=== PATIENT | male | born 1950 | race Caucasian/White ===

== ENCOUNTER 2024-02-25 13:46 | Outpatient (AMB) | payer OTHER, SELFPAY ==
[2024-02-25 13:55] VITALS: BP 130/70; PULSE 69; O2SAT 97; BMI 30.5
--- NOTE | 2024-02-25 13:55 | A.OFFVIS_ITS ---
Vital Signs 02/25/24 13:55 Height 5 ft 9 in Weight 206 lb 6 oz BMI 30.5 BP 130/70 Blood Pressure Location Lt brachial Position Sitting Pulse 69 Pulse Source Pulse Oximeter Pulse Oximetry (%) 97 Oxygen Delivery Method Room Air Intake Visit Reasons: arthralgia Intake Note: Patient presents today for follow up on arthralgia today. Allergies No Known Allergies Allergy (Verified 02/25/24 14:02) HPI HPI arthralgia: Details: He has pain in his mid right back for the last few months, which is aggravated with playing guitar. He has been having sinus congestion with pain localized to his eyebrows and sinuses. He is recovering from URI. Denies scalp tenderness or jaw pain. He has noted since he has had URI that his vision has changed. He has called his peer counselor requesting to be placed on a cancellation list with an appointment scheduled for 04/29/2024. Denies weakness in his upper extremities or lower extremities. [facility] Surgical History (Updated 02/25/24 @ 14:07 by Sherie Moscoso CMA) H/O removal of cyst H/O heart bypass surgery Social History (Updated 02/25/24 @ 14:09 by Sherie Moscoso CMA) Alcohol intake: former Patient Tobacco Use Status: Former Tobacco user Use of substances other than those prescribed or required for medical reasons: No Review of Systems Const All systems reviewed & are unremarkable except as noted in HPI and below Physical Exam Vital Signs: Last Vital Signs Pulse 69 02/25/24 13:55 BP 130/70 02/25/24 13:55 Pulse Ox 97 02/25/24 13:55 Oxygen Delivery Method Room Air 02/25/24 13:55 BMI result Body Mass Index 30.5 Const Other: General: Comfortable CVS: RRR Respiratory: clear to auscultation bilaterally. Good respiratory effort Skin: No lesions seen MSK: Localized tenderness to right upper flank region. No spinous process tenderness. No tenderness in peripheral joints. No synovitis present. Good range of motion of upper extremities and lower extremities. Assessment & Plan Assessment & Plan (1) Strain of right latissimus dorsi muscle: Comment: Discussed diagnosis and management. Code(s): S29.012A - Strain of muscle and tendon of back wall of thorax, initial encounter Category: Medical Plan: He will contact his regional account executive to inquire if regional account executive is okay with patient using diclofenac gel 1% applied to affected area every 4-6 hours as needed Apply ice or heat to affected area twice a day PT ordered with myofascial release Return to clinic in 3 months (2) PMR (polymyalgia rheumatica): Comment: In remission Code(s): M35.3 - Polymyalgia rheumatica Category: Medical Plan: Monitor clinically Inflammatory markers ordered Return to clinic in 3 months Orders: Orders PT Evaluation and Treatment Today S29.012A - Strain of muscle and tendon of back wall of thorax, initial encounter C Reactive Protein Today M35.3 - Polymyalgia rheumatica Erythrocyte Sedimentation Rate Today M35.3 - Polymyalgia rheumatica Medications: New diclofenac sodium 1% (Arthritis Pain (diclofenac)) apply to affected area every 4-6 hours PRN 2 grams topical QID 100 grams 5RF Coding Level of Care Code Est Pt Level 4 (01496) Complex EM visit Add On G2211 Diagnoses Strain of right latissimus dorsi muscle S29.012A PMR (polymyalgia rheumatica) M35.3
== END 2024-02-25 15:21 | disposition home or self-care (01) ==
PROVIDERS: PCP Internal Medicine; Visit Provider Internal Medicine Rheumatology
DX: S29.012A Strain of muscle and tendon of back wall of thorax, initial encounter (principal); M35.3 Polymyalgia rheumatica
CPT/HCPCS: 99214

== ENCOUNTER 2024-04-28 13:58 | Outpatient (RCR) | payer MEDICARE, SELFPAY ==
--- NOTE | 2024-03-26 14:40 | MHC.PT.EP ---
[facility] [place] [facility] [place] [facility] [address] Marci Esquivel [address] [phone] F: [phone] F: [phone] F: [phone] F: [phone] Physical Therapy Plan of Care Date of Evaluation: 03/26/24 Date of Surgery: Diagnosis: strain of muscle and tendon of back wall of thorax, strain of RIGHT latissimus dorsi muscle (MD Dx) RIGHT shoulder girdle/ scapulothoracic muscle imbalances causing thoracic pain (PT Dx) RS Assessment: Joe is a pleasant, motivated 73 y.o. 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 Peterson MD, with Dx of strain of muscle and tendon of back wall of thorax, strain of RIGHT latissimus dorsi muscle. PT diagnosis is RIGHT shoulder girdle/ scapulothoracic muscle imbalances causing thoracic pain. Patient presents with muscle imbalances in R shoulder girdle and scapulothoracic area due to prolonged posture holding guitar. Patient impairments include limited thoracic extension, limited thoracic rotation, limited shoulder flexion, pain in scapular area, reduced diphragmatic breathing, tightness in UT, LS, lat dorsi, rhomboids, weakness in middle and lower traps. Patient current functional limitations are pain and difficulty holding and playing guitar and reaching overhead. Patient will benefit from skilled PT to address aforementioned impairments and functional limitations to meet established goals. Frequency and Duration: The patient will be seen 2x/week for 4 weeks Short Term Goals: 2 weeks Patient demonstrates consistency and independence with HEP to self manage symptoms. Flooring Salesperson Goals: 4 weeks Patient presents with increased R shoulder flexion 175 degrees to restore overhead reaching without sxs. Patient presents with increased R middle trap strength 4/5 to be able to hold guitar for a long period of time without fatigue. Treatment Plan: Modalities to reduce pain, spasms and effusion. Manual therapy to restore motion and function. Therapeutic exercise to improve strength and flexibility. Neuromuscular re-education for posture and balance. Therapeutic activities to return to functional activities of daily living. Electronically signed by: Toshia Childers, PT, DPT Please sign and return to therapist. Thank you for your referral.
--- NOTE | 2024-08-03 16:06 | MHC.PT.DC ---
[facility] [place] Office [address] Marci Esquivel [address] [phone] F: [phone] F: [phone] F: [phone] F: [phone] Physical Therapy Discharge Report Diagnosis: strain of muscle and tendon of back wall of thorax, strain of RIGHT latissimus dorsi muscle (MD Dx) RIGHT shoulder girdle/ scapulothoracic muscle imbalances causing thoracic pain (PT Dx) RS Date of Surgery: Date of Evaluation: 03/26/24 Date of Discharge: 08/03/24 Treatments to Date: 6 Cancellations to Date: 1 No Shows to Date: 0 Discharge Status: Improved Function Independent with HEP Discharge Summary: Joe Rider did very well with PT interventions which included manual therapy techniques, postural education, therapeutic exercises and activities and modalities for muscle relaxation and pain control to help balance shoulder girdle and scapular/mid thoracic musculature. He canceled his last scheduled PT appointment and ceased attending, therefore is discharged at this time. Electronically signed by: Toshia Childers, PT, DPT Please sign and return to therapist. Thank you for your referral.
== END 2024-08-03 16:07 | disposition home or self-care (01) ==
LOC: HO.PT 13:58
PROVIDERS: PCP Internal Medicine; Visit Provider Internal Medicine Rheumatology
DX: S29.012D Strain of muscle and tendon of back wall of thorax, subsequent encounter (principal)
CPT/HCPCS: 97110; 97140; 97161; 97530

== ENCOUNTER 2024-06-03 12:44 | Outpatient (AMB) | payer OTHER, SELFPAY ==
[2024-06-03 12:47] VITALS: BP 110/50; PULSE 75; O2SAT 97; BMI 30.3
--- NOTE | 2024-06-03 12:47 | MHC.OFFVIS ---
Vital Signs 06/03/24 12:47 Height 5 ft 9 in Weight 205 lb 0.478 oz BMI 30.3 BP 110/50 L Blood Pressure Location Rt brachial Position Sitting Pulse 75 Pulse Source Pulse Oximeter Pulse Oximetry (%) 97 Oxygen Delivery Method Room Air Intake Visit Reasons: arthralgia Intake Note: Patient presents today for follow up on arthralgia today. Accompanied by: Self / Same As Patient Allergies No Known Allergies Allergy (Verified 06/03/24 12:49) HPI HPI arthralgia: Details: He has been feeling unwell. He was recently diagnosed with strep throat and was treated. Initially PCP thought that patient had sinus infection. He developed sore throat and seeked medical care from urgent care. He has been feeling tired and dizzy. He continues to work part-time. Hard to take a deep breath. Denies new cough or fevers. He has not been hydrating well. Denies PMR GCA symptoms. Physical therapy resolved flank pain but it has come back intermittently. He is not compliant with PT exercises. [facility] Surgical History (Updated 02/25/24 @ 14:07 by Sherie Moscoso CMA) H/O removal of cyst H/O heart bypass surgery Social History (Updated 02/25/24 @ 14:09 by Sherie Moscoso CMA) Alcohol intake: former Patient Tobacco Use Status: Former Tobacco user Review of Systems Const All systems reviewed & are unremarkable except as noted in HPI and below Physical Exam Vital Signs: Last Vital Signs Pulse 75 06/03/24 12:47 BP 110/50 L 06/03/24 12:47 Pulse Ox 97 06/03/24 12:47 Oxygen Delivery Method Room Air 06/03/24 12:47 BMI result Body Mass Index 30.3 Const Other: General: Comfortable CVS: RRR Respiratory: clear to auscultation bilaterally. Good respiratory effort Vascular: +2 right radial pulse, +1 left radial pulse Skin: No lesions seen MSK: No tenderness in peripheral joints. No synovitis present. Good range of motion of upper extremities and lower extremities. Assessment & Plan Assessment & Plan (1) Strain of right latissimus dorsi muscle: Comment: Initially resolved with physical therapy. He has had intermittent reoccurrence but it is more tolerable than initial onset. Code(s): S29.012A - Strain of muscle and tendon of back wall of thorax, initial encounter Category: Medical Plan: I have asked him to resume exercises learned from PT Return to clinic in 1 year or sooner if needed (2) PMR (polymyalgia rheumatica): Comment: In remission. Inflammatory markers were normal February 2024. Code(s): M35.3 - Polymyalgia rheumatica Category: Medical Plan: Monitor clinically I have asked him to follow up with PCP for evaluation due to complaints of fatigue, dizziness and hard to catch her breath post strep throat infection and treatment. I encouraged him to hydrate well. Return to clinic in 1 year or sooner if needed Coding Level of Care Code Est Pt Level 4 (49229) Complex EM visit Add On G2211 Diagnoses Strain of right latissimus dorsi muscle S29.012A PMR (polymyalgia rheumatica) M35.3
--- OUTSIDE RECORDS SUMMARY | 2024-06-03 14:59 | XMS_ITS | Encounter Summary ---
Author Organization [facility] Address [address] [facility] [address] [place] [address] Phone Care Team Providers Care Administrative Director Name Role Phone Taras Motta DO Primary Care Provider [phone] Reason for Visit * Reason Comments Med Refill Encounter Details Date Type Department Care Team (Late st Contact Info) Description 12/03/2023 Refill [facility] [address] [facility] [address] [place] [phone] Darin Massey MD [address] [facility] [facility] [address] [place] [phone] Social History Tobacco Use Types Packs/Day Years Used Date Smoking Tobacco: Former Smokeless Tobacco: Never Comments:30 years ago Alcohol Use Standard Drinks/Week Comments Yes 0 (1 standard drink = 0.6 oz pur e alcohol) Occasoinal Sex and Gender Information Value Date Recorded Sex Assigned at Not on file Legal Sex Male 2:07 PM EDT Gender Identity Not on file Sexual Orientation Not on file documented as of this encounter Plan of Treatment Not on file documented as of this encounter Visit Diagnoses Not on filedocumented in this encounter Care Teams Administrative Director Relationship Specialty Start Date End Date Taras Motta DO [address] [place] [address] PCP - General Internal Medicine 09/22/20 documented as of this encounter
--- OUTSIDE RECORDS SUMMARY | 2024-06-03 14:59 | XMS_ITS | Encounter Summary ---
Author Organization [facility] Address [facility] [address] [place] [address] Phone Care Team Providers Care Storekeeper Helper Name Role Phone Taras Motta DO Primary Care Provider [phone] Reason for Visit * Reason Comments Med Refill Encounter Details Date Type Department Care Team (Late st Contact Info) Description 12/05/2023 Refill [facility] [address] [facility] [address] [place] [phone] Darin Massey MD [address] [facility] [address] [place] [phone] Social History Tobacco Use Types Packs/Day Years [...] on filedocumented in this encounter Care Teams Storekeeper Helper Relationship Specialty Start Date End Date Taras Motta DO [address] [place] [address] PCP - General Internal Medicine 09/22/20 documented as of this encounter
--- OUTSIDE RECORDS SUMMARY | 2024-06-03 14:59 | XMS_ITS | Encounter Summary ---
Author Organization [facility] Address [address] [facility] [address] [place] [address] Phone Care Team Providers Care Sandblasting Supervisor Name Role Phone Taras Motta DO Primary Care Provider [phone] Reason for Visit * Reason Comments Med Refill Encounter Details Date Type Department Care Team (Late st Contact Info) Description 12/19/2023 Refill [facility] [address] [facility] [address] [place] [phone] Darin Massey MD [address] [facility] [address] [place] [phone] Social History Tobacco Use Types Packs/Day Years [...] on filedocumented in this encounter Care Teams Sandblasting Supervisor Relationship Specialty Start Date End Date Taras Motta DO [address] [place] [address] PCP - General Internal Medicine 09/22/20 documented as of this encounter
--- OUTSIDE RECORDS SUMMARY | 2024-06-03 14:59 | XMS_ITS | Clinical Summary ---
Author Organization [facility] Address [address] [place] [address] Phone Care Team Providers Care Packaging Operator Name Role Phone EliecerTaras mauro Primary Care Provider [phone] Allergies No known active allergies Medications Aspirin Low Dose 81 MG EC tablet Take 81 mg by mouth 1 (one) time each day 1 Active tamsulosin (FLOMAX) 0.4 MG 24 hr capsule TAKE 1 CAPSULE BY MOUTH DAILY AT BEDTIME 1 Active Eliquis 2.5 MG tablet Take 2.5 mg by mouth 2 (two) times a day 2 Active venlafaxine 150 MG 24 hr tablet Take 150 mg by mouth 1 (one) time each day with food 3 Active levothyroxine (SYNTHROID, LEVOTHROID) 100 MCG tablet Take 100 mcg by mouth 1 (one) time each day before breakfast 2 Active valsartan (DIOVAN) 160 MG tablet Take 160 mg by mouth 1 (one) time each day 2 Active methocarbamol (ROBAXIN) 500 MG tablet Take 500 mg by mouth every 8 (eight) hours 3 Active Diclofenac Sodium 1 % gel APPLY 2 GRAMS TOPICALLY TO THE AFFECTED AREA 3 TO 4 TIMES PER DAY 3 Active clotrimazole (LOTRIMIN) 1 % cream APPLY A PEA-SIZED AMOUNT TOPICALLY TO THE GROIN RASH AND GLUTEAL FOLDS TWICE DAILY FOR 4 WEEKS 3 Active cephalexin (KEFTAB) 500 MG tablet TAKE 1 TABLET BY MOUTH FOUR TIMES DAILY FOR 7 DAYS 3 Active fluticasone (FLONASE) 50 MCG/ACT nasal spray SHAKE LIQUID AND USE 1 SPRAY IN EACH NOSTRIL TWICE DAILY 3 Active atorvastatin (LIPITOR) 40 MG tablet Take 40 mg by mouth at bed time 3 Active metoprolol succinate XL (TOPROL XL) 50 MG 24 hr tablet Take 1 tablet (50 mg total) by mouth 1 (one) time each day 30 tablet 5 4 Active Active Problems Problem Noted Date Diagnosed Date Hypertension 03/28/2021 Obese class I 03/28/2021 Obstructive sleep apnea of adult 03/28/2021 Pleural effusion 03/28/2021 Immunizations Immunization Administration Dates Next Due Pfizer SARS-COV-2 05/07/2020 Family History Medical History Relation Comments Heart disease Father Thyroid disease Mother Clotting disorder Sister Thyroid disease Sister Relation Status Comments Father Mother Sister Social History Tobacco Use Types Packs/Day Years Used Date Smoking Tobacco: Former Smokeless Tobacco: Never Tobacco Cessation:Counseling Given: No Comments:30 years ago Alcohol Use Standard Drinks/Week Comments Yes 0 (1 standard drink = 0.6 oz pur e alcohol) Occasoinal Sex and Gender Information Value Date Recorded Sex Assigned at Not on file Legal Sex Male 2:07 PM EDT Gender Identity Not on file Sexual Orientation Not on file Last Filed Vital Signs Vital Sign Reading Time Taken Comments Blood Pressure 138/65 09/16/2022 2:56 PM EDT Pulse 70 09/16/2022 2:56 PM EDT Temperature - - Respiratory Rate - - Oxygen Saturation 98% 09/16/2022 2:56 PM EDT Inhaled Oxygen Concentration - - Weight 91.2 kg (201 lb) 09/16/2022 2:56 PM EDT Height 175.3 cm (5' 9 ) 03/28/2021 2:21 PM EST Body Mass Index 29.68 03/28/2021 2:21 PM EST Plan of Treatment Health Maintenance Due Date Last Done Comments Pneumococcal Vaccine: 50+ Ye ars (1 of 2 - PCV) 06/23/1971 Colorectal Cancer Screening: Annual FOBT 2001 Colorectal Cancer Screening: Colonoscopy 2001 Colorectal Cancer Screening: Sigmoidoscopy 2001 Influenza Vaccine (Season Ended) 2024 Hepatitis B Vaccine Aged Out No longe r eligible based on patient's age to complete this topic Insurance Care Teams Packaging Operator Relationship Specialty Start Date End Date Taras Motta DO [address] [place] [address] PCP - General Internal Medicine 09/22/20
== END 2024-06-03 13:15 | disposition home or self-care (01) ==
LOC: HO.RHES 12:45
PROVIDERS: PCP Internal Medicine; Visit Provider Internal Medicine Rheumatology
DX: S29.012A Strain of muscle and tendon of back wall of thorax, initial encounter (principal); M35.3 Polymyalgia rheumatica
CPT/HCPCS: 99214

== ENCOUNTER 2024-12-23 10:54 | Outpatient (AMB) | payer MEDICARE, SELFPAY ==
[2024-12-23 11:00] VITALS: BP 120/60; PULSE 81; O2SAT 99; BMI 29.8
--- NOTE | 2024-12-23 11:00 | MHC.OFFVIS ---
Vital Signs 12/23/24 11:00 Height 5 ft 9 in Weight 201 lb 15.095 oz BMI 29.8 BP 120/60 Blood Pressure Location Rt brachial Position Sitting Pulse 81 Pulse Source Pulse Oximeter Pulse Oximetry (%) 99 Oxygen Delivery Method Room Air Intake Visit Reasons: follow up/ MD sibleyq appt today Intake Note: Patient presents today for gout Accompanied by: Self / Same As Patient Allergies No Known Allergies Allergy (Verified 12/23/24 11:01) HPI HPI follow up/ MD barclay appt today: Details: Three weeks ago aid swelling in his right ankle that is spread to his midfoot. He is noticing increased pain shooting to his big toe today. PCP prescribed colchicine for a couple of days, which resolved the episode then it returned. He then received prednisone 3 tablets to take for 1 day, 2 tablets for 2 days then 1 tablet for 2 days and stop. After taking prednisone it returned. He took Tylenol yesterday without relief. He is avoiding NSAIDs due to his cardiac history. He may have had 4 beers prior to episode. He also recalls having shrimp. History of recurrent episode involving his ankle with swelling more recently every 6 months. He has also has history of podagra. [facility] Surgical History H/O removal of cyst H/O heart bypass surgery Social History Alcohol intake: former Patient Tobacco Use Status: Former Tobacco user Physical Exam Vital Signs: Last Vital Signs Pulse 81 12/23/24 11:00 BP 120/60 12/23/24 11:00 Pulse Ox 99 12/23/24 11:00 Oxygen Delivery Method Room Air 12/23/24 11:00 BMI result Body Mass Index 29.8 Const Other: General: Comfortable CVS: RRR Respiratory: clear to auscultation bilaterally. Good respiratory effort Skin: No lesions seen MSK: Tender to palpate right ankle with synovitis. He also has tenderness of midfoot. Erythema present right dorsal foot and ankle. No other joints are swollen. Normal range of motion of upper extremities and lower extremities. No tophus identified. Assessment & Plan Assessment & Plan (1) Gout: Comment: Presumed. Recurrent episode. Code(s): M10.9 - Gout, unspecified Category: Medical Plan: I will treat current flare with course of prednisone. He will return to lab for uric acid check after gout resolves. He has allopurinol prescribed from PCP at home. He will start allopurinol after uric acid level is checked. Return to clinic in May 2025 or sooner if needed (2) PMR (polymyalgia rheumatica): Comment: In remission. Inflammatory markers were normal February 2024. Code(s): M35.3 - Polymyalgia rheumatica Category: Medical Plan: Monitor clinically Return to clinic in May 2025 or sooner if needed Orders: Orders Uric Acid Today M10.9 - Gout, unspecified Creatinine Today M10.9 - Gout, unspecified Alanine Aminotransferase Today M10.9 - Gout, unspecified Aspartate Amino Transferase Today M10.9 - Gout, unspecified Medications: New prednisone Take 2 tablets daily for 5 days then stop. Take prednisone with food. 40 mg (2 x 20 mg) PO DAILY 10 tabs 0RF Coding Level of Care Code Est Pt Level 3 (80351) Complex EM visit Add On G2211 Diagnoses Gout M10.9 PMR (polymyalgia rheumatica) M35.3
--- OUTSIDE RECORDS SUMMARY | 2024-12-23 13:35 | XMS_ITS | Encounter Summary ---
Author Organization [facility] Address [address] [facility] [address] [place] [address] Phone Care Team Providers Care Hris Specialist Name Role Phone Taras Motta DO Primary Care Provider [phone] Reason for Visit * Reason Comments Med Refill Encounter Details Date Type Department Care Team (Late st Contact Info) Description 12/05/2023 Refill [facility] [address] [facility] [address] [place] [phone] Darin Massey MD [address] [facility] [address] [place] [phone] Social History Tobacco Use Types Packs/Day Years [...] on filedocumented in this encounter Care Teams Hris Specialist Relationship Specialty Start Date End Date Taras Motta DO [address] [place] [address] PCP - General Internal Medicine 09/22/20 documented as of this encounter
--- OUTSIDE RECORDS SUMMARY | 2024-12-23 13:36 | XMS_ITS | Encounter Summary ---
Author Organization [facility] Address [address] [facility] [address] [place] [address] Phone Care Team Providers Care Flask Fitter Name Role Phone Taras Motta DO Primary Care Provider [phone] Reason for Visit * Reason Comments Med Refill Encounter Details Date Type Department Care Team (Late st Contact Info) Description 12/03/2023 Refill [facility] [address] [facility] [facility] [address] [place] [phone] Darin Massey MD [address] [facility] [address] [place] [phone] Social History Tobacco Use Types Packs/Day Years [...] on filedocumented in this encounter Care Teams Flask Fitter Relationship Specialty Start Date End Date Taras Motta DO [address] [place] [address] PCP - General Internal Medicine 09/22/20 documented as of this encounter
--- OUTSIDE RECORDS SUMMARY | 2024-12-23 13:36 | XMS_ITS | Clinical Summary ---
Author Organization [facility] Address [address] [employer] [facility] [address] [place] [address] Phone Care Team Providers Care Orthodontic Laboratory Technician Name Role Phone Taras Motta DO Unavailable [phone] Taras Motta DO Primary Care Provider Adrian Massey MD Unavailable [phone] Allergies Active Allergy Reactions Criticality Noted Date Comments Dike Pollen-Short Ragweed 05/02/2023 Medications amLODIPine (NORVASC) 10 MG tablet Take 10 mg by mouth every morning. 04/25/2023 Active ELIQUIS 2.5 mg Take 2.5 mg by mouth 2 (two) times a day. Active atorvastatin (LIPITOR) 40 MG tablet Take 40 mg by mouth daily. Active levothyroxine (SYNTHROID, LEVOTHROID) 100 MCG tablet Take 100 mcg by mouth. Active metoprolol succinate (TOPROL-XL) 50 MG 24 hr tablet Take 50 mg by mouth. 12/16/2022 Active tamsulosin (FLOMAX) 0.4 mg Cap Take 0.4 mg by mouth nightly at bedtime. 03/23/2023 Active valsartan (DIOVAN) 160 MG tablet Take 160 mg by mouth daily. Active venlafaxine (EFFEXOR-ER,) 150 mg TR24 Take 150 mg by mouth daily. with food Active Active Problems Problem Noted Date Diagnosed Date CKD (chronic kidney disease) 05/02/2023 Congestive heart failure 05/02/2023 Acquired hypothyroidism 05/02/2023 Assessment & Plan (04/30/2024 3:22 PM EDT): Reports good consistency taking rx appropriately. Will check labs & adjust rx as appropriate. Has just started a vitamin w/ B-complex. Advised to check label & if has biotin, hold for ~ 1 week prior to having labs done. To call/message via portal if hasn't heard from me with results within 1-2 weeks. If levels normal, will repeat labs yearly, sooner prn symptoms of thyroid dysfunction or > 10-15# weight change, or as otherwise clinically indicated. Will again call for records from [facility]. Assessment & Plan (05/02/2023 12:58 PM EDT): Reports good consistency taking rx appropriately. Will check labs & adjust rx as appropriate. To call/message via portal if hasn't heard from me with results within 1-2 weeks. If levels normal, will repeat labs yearly, sooner prn symptoms of thyroid dysfunction or > 10-15# weight change, or as otherwise clinically indicated. Will call for records from [facility]. Hypertension 03/28/2021 Obstructive sleep apnea of adult 03/28/2021 CAD (coronary artery disease) Social History Tobacco Use Types Packs/Day Years Used Date Smoking Tobacco: Former Cigarettes 2 5 1 989 - 1993 Smokeless Tobacco: Never Tobacco Cessation:Counseling Given: Not Answered Alcohol Use Standard Drinks/Week Comments Not Currently 0 (1 standard drink = 0.6 oz pur e alcohol) Education Answer Date Recorded Are you interested in more education? Not on bharti e 10/28/2022 Are you concerned about learning? Not on file 10/28/2022 No 10/28/2022 No 10/28/2022 Digital Access Answer Date Recorded No 10/28/2022 No 10/28/2022 Reliable internet access at home? Not on file 10/28/2022 Device with a working camera? Not on file Sex and Gender Information Value Date Recorded Sex Assigned at Not on file Legal Sex Male 9:50 AM EDT Gender Identity Not on file Sexual Orientation Not on file Last Filed Vital Signs Vital Sign Reading Time Taken Comments Blood Pressure 122/62 04/30/2024 11:54 AM EDT Pulse 76 04/30/2024 11:54 AM EDT Temperature - - Respiratory Rate - - Oxygen Saturation 98% 04/30/2024 11:54 AM EDT Inhaled Oxygen Concentration - - Weight 94.2 kg (207 lb 9.6 oz) 04/30/2024 11:54 AM EDT Height 174 cm (5' 8.5 ) 04/30/2024 11:54 AM EDT Body Mass Index 31.1 04/30/2024 11:54 AM EDT Plan of Treatment Upcoming Encounters Date Type Department Care Team (Late st Contact Info) Description 05/04/2025 12:00 PM EDT Office Visit [facility] [address] [place] [address] Tiffanie Aguilar MD [address] [place] [address] [email or web address] Health Maintenance Due Date Last Done Comments Adult Td,Tdap Booster 1952 DEPRESSION SCREENING 1964 HEPATITIS C SCREENING 1970 PNEUMOCOCCAL VACCINES (50+ years) (1 of 2 - PCV) 06/23/1971 COLOGUARD 1997 COLONOSCOPY 1997 COLORECTAL CANCER SCREENING 1997 FIT TEST 1997 FOBT 1997 SIGMOIDOSCOPY 1997 VIRTUAL COLONOSCOPY 1997 RSV VACCINE (1 - Risk 50-74 years 1-dose series) 2002 ZOSTER VACCINES (1 of 2) 2002 ABDOMINAL AORTIC ANEURYSM (AAA) SCREENING 2017 CREATININE LEVEL 05/01/2024 05/02/2023 POTASSIUM LEVEL 05/01/2024 05/02/2023 INFLUENZA VACCINE (#1) 2024 COVID-19 VACCINE ( - season) 2024 BLOOD PRESSURE 10/31/2024 04/30/2024 TSH LEVEL 05/08/2025 05/08/2024, 10/12, 05/02/2023, Additional history exists SMOKING STATUS SCREENING (Once After 26 Yrs) Completed 04/30/2024 HEPATITIS A VACCINES Aged Out No long er eligible based on patient's age to complete this topic HIB VACCINES Aged Out No longer eligi ble based on patient's age to complete this topic IPV VACCINES Aged Out No longer eligi ble based on patient's age to complete this topic MENINGOCOCCAL VACCINES (ACWY) Aged Out No longer eligible based on patient's age to complete this topic MENINGOCOCCAL VACCINES (B) Aged Out N o longer eligible based on patient's age to complete this topic Medical Devices Not on file Procedures Procedure Name Priority Date/Time Associated Diagnosis Comments TSH WITH REFLEX Routine 05/08/2024 12:18 PM EDT Acquired hypothyroidism BASIC METABOLIC PANEL (BMP) Routine 05/02/2023 10:11 AM EDT Acquired hypothyroidism from Last 3 Months or Most Recently Relevant to Health Maintenance Results * TSH with reflex (05/08/2024 12:18 PM EDT) Blood us Tiffanie Aguilar MD LAB BLOOD BKR ORDERABL ES Final Result [address] [address] * (ABNORMAL) Basic metabolic panel (05/02/2023 10:11 AM EDT) SODIUM 140 133 - 146 mmol/L CHLORIDE 104 96 - 108 mmol/L POTASSIUM 4.5 3.3 - 5.1 mmol/L CO2 26 21 - 35 mmol/L BUN 23(H) 6 - 19 mg/dL CREATININE 1.30 0.5 - 1.5 mg/dL GLUCOSE 160(H) 70 - 99 mg/dL CALCIUM 9.5 8.4 - 10.3 mg/dL EGFR 59(L) >59 mL/min/1.7 3m2 Comment:Estimated glomerular filtration rate calculated using the CKD-EPI refit equation. ANION GAP 15 10 - 20 mmol/L Blood 05/02/2023 10:1 1 AM EDT 05/02/2023 10:12 AM EDT Tiffanie Aguilar MD LAB BLOOD BKR ORDERABL ES Final Result [address] [address] from Last 3 Months or Most Recently Relevant to Health Maintenance Insurance [employer] RE[employer] RE[employer]PLACEMENT [employer]IC[employer] HMO REPLACEMENT [address] [address] MEDICARE HMO REPLACEMENT [employer] RE[employer]AC[employer] Care Teams Orthodontic Laboratory Technician Relationship Specialty Start Date End Date Taras Motta DO [address] [address] PCP - General Internal Medicine 05/02/23 Taras Motta DO [address] [address] Internal Medicine 10/25/22 Adrian Massey MD [address] [place] [address] [email or web address] Nephrology 05/05/23 Additional Source Comments The information contained in this document represents components of the legal health record. It is not the complete legal health record.[facility]
--- OUTSIDE RECORDS SUMMARY | 2024-12-23 13:36 | XMS_ITS | Continuity of Care Document ---
Author Organization [place] [facility], [facility] Address [address] [place] [address] Care Team Providers Care Clothing Patternmaker Name Role Phone MARLON DE GUZMAN Primary Care Provider Assessment Encounter Date Assessment Date Assessment LastModified by Organization Details LastModified Time 11/05/2024 11/05/2024 Joe Grant is a 74-year-old male with recurrent sinus infections, bilateral nasal polyps, and a deviated septum contributing to sinus blockage. The patient has not yet started using the prescribed nasal spray, Xhance, which is intended to shrink the nasal polyps and reduce inflammation. I will resend the prescription to the specialty pharmacy and ensure the patient is able to obtain the medication. The goal is to reduce the frequency of sinus infections and avoid surgical intervention, given the patient's use of Eliquis for blood clots, which poses a risk if surgery is required. FOLLOW-UP: The patient will follow up in a few months to assess the effectiveness of the nasal spray. If symptoms persist, a CAT scan of the sinuses will be considered to evaluate the need for surgical intervention. [email or web address] Not available 11/05/2024 15:45:29 Plan of Treatment Reminders Order Date Submit Date Provider Last Modified By Organization Details Last Modified Time Details Appointments Establish ed 30 2024 12:00P M RITO ANN MD Not available Not available Not available Lab None recorded. Referral None recorded. Procedures None recorded. Surgeries None recorded. Imaging None recorded. Medication Orders Xhance 93 mcg/actua tion breath activated aerosol 2024 025 [employer] (New Address), [address] [place] [address], [address], [place], [place], [id number], 11/05/2024 15:33:15 Patient TargetsNo targets recorded. Patient Instructions Encounter Date Encounter Id Patient Instructions Last Modified By Organization Details Last Modified Time 11/05/2024 [id number] - sound effects supervisor the prescribed nasal spray, Xhance, from the specialty pharmacy. - Use the nasal spray as directed to reduce nasal polyps and inflammation. - Follow up in a few months to assess progress. - Notify the provider if there are issues obtaining the medication. [email or web address] Not available 11/05/2024 15:33:30 Please note: Parts of this encounter note have been generated by AI based on audio conversation. Patient consent was required prior to utilizing this technology. Content review was required prior to finalizing the note. [email or web address] Not available 11/05/2024 15:33:30 Reason for Referral None Reported. Problems Name Problem SNOMED Code Status Onset Date Resolution Date Notes Provider Name and Address Organization Details Recorded Time Chronic rhinitis 45272685 Active 2014 Rhinitis, chronic; Note: Date Diagnosed : 03/07/2014 3:30 PM (472.0) Not Available [facility] 4 03:02:30 Acute maxillary sinusitis 43793635 Active 2015 Acute maxillary sinusitis , unspecifi ed; Note: Date Diagnosed : 05/24/2015 3:00 PM (J01.00) Not Available [facility] 4 03:02:33 Posterior rhinorrhe a 32960289 Active 2017 Postnasal drip; Note: Date Diagnosed : 10/08/2017 2:21 PM (R09.82) Not Available [facility] 4 03:02:32 Acute frontal sinusitis 01285141 Active 2018 Acute frontal sinusitis , unspecifi ed; Note: Date Diagnosed : 05/12/2018 5:03 PM (J01.10) Not Available [facility] 4 03:02:32 Seasonal allergic rhinitis 844903209 Active 2018 Other seasonal allergic rhinitis; Note: Date Diagnosed : 05/26/2018 4:19 PM (J30.2) Not Available [facility] 4 03:02:31 Deviated nasal septum 657031915 Active 2024 RITO CASTILLO MD [address] [facility], [place], [address] , [facility] - [facility] 5 14:10:40 Allergic rhinitis 03509702 Active 2024 RITO CASTILLO MD [address] [facility] [place], [place], [address] , [facility] - [facility] [place] 5 14:10:52 Bilateral tinnitus 30123123061 02 Active 2024 RITO CASTILLO MD [address] [facility] [place] [address], [place], [address] , [facility] - [facility] [place] 5 14:11:04 Polyp of nasal cavity and/or nasal sinus 452048006 Active 2024 RITO CASTILLO MD [address] [facility] [place] [address], [place], [address] , [facility] - [facility] [place] 5 14:11:11 Chronic sinusitis 69208714 Active 2024 RITO CASTILLO MD [address] [facility] [place] [address], [place], [address] , [facility] - [facility] 15:29:56 Sensorine ural hearing loss of bilateral ears 183832963 Active 2024 RICHARD JONES [address] [facility] [place], [place], [address] , [facility] - [facility] 5 15:30:39 Notes:Some problems listed i n Document: #[id number] could not be added to this patient's chart. Please review this document and add these problems to the patient's chart manually as needed. Problem Notes None recorded. Procedures Surgical History Date Name Laterality Status Provider Name and Address Organization Details Recorded Time JMSNasal/Sinus Endoscopy completed RITO WONG MD 100 [facility], [place], [address], [place] [facility] 11/05/2024 15:29:47 5 Comp Audio with Tymps - 51165 & 11547 completed RICHARD JONES 100 [facility] [address], [place], [address], [place] [facility] 07/30/2024 15:30:34 5 JMSNasal/Sinus Endoscopy completed RITO WONG MD 100 [facility] [address], [place], [address], [place] [facility] 07/09/2024 14:10:34 Imaging Results None recorded. Procedure Notes None recorded. Medical Equipment None Reported. Allergies No known drug allergies Medications Name Sig Start Date Stop Date Status Note LastModified by Organization Details LastModified Time losartan 50 mg tablet 07/09 completed Medicati on ID: [id number] Du ration Value: 30 Brand Name: losartan Send Method: E-Prescr ibed Sub s Allowed: subs OK Speci al Instruct ion: TK 1 T PO ONCE D Medica tionGene ricName: losartan Not Available Not Available Not Available atorvasta tin 40 mg tablet TAKE 1 TABLET BY MOUTH DAILY active Not Available Not Available No t Available atorvasta tin 80 mg tablet TAKE 1 TABLET BY MOUTH DAILY 07/09 completed Not Available Not Available Not Available nystatin 100,000 unit/mL oral suspensio n 05/16 completed Medicati on ID: [id number] Du ration Value: 30 Reason: () Brand Name: nystatin Send Method: E-Prescr ibed Sub s Allowed: subs OK Speci al Instruct ion: SWISH AND SPIT 1 TEA 5ML PO QID Medi cationGe nericNam e: nystatin Not Available Not Available Not Available atorvasta tin 20 mg tablet 07/09 completed Medicati on ID: [id number] D uration Value: 90 Brand Name: atorvast atin Sen d Method: E-Prescr ibed Sub s Allowed: subs OK Speci al Instruct ion: TK 1 T PO QHS Medi cationGe nericNam e: atorvast atin Not Available Not Available Not Available venlafaxi ne 75 mg tablet 07/09 completed Medicati on ID: [id number] Du ration Value: 30 Brand Name: venlafax ine Send Method: E-Prescr ibed Sub s Allowed: subs OK Speci al Instruct ion: TK 1 T PO D Medica tionGene ricName: venlafax ine Not Available Not Available Not Available azithromy loco 250 mg tablet TK 2 TS PO ON DAY 1, THEN TK 1 T PO D FOR 4 DAYS 07/09 completed Not Available Not Available Not Available metoprolo l succinate ER 50 mg tablet,ex tended release 24 hr TAKE 1 TABLET BY MOUTH DAILY active Not Available Not Available No t Available isosorbid e mononitra te ER 30 mg tablet,ex tended release 24 hr TAKE 1 TABLET BY MOUTH DAILY IN THE MORNING 07/09 completed Not Available Not Available Not Available venlafaxi ne ER 150 mg capsule,e xtended release 24 hr TAKE 1 CAPSULE BY MOUTH DAILY WITH FOOD active Not Available Not Available No t Available valsartan 80 mg tablet TAKE 1 TABLET BY MOUTH DAILY active Not Available Not Available No t Available amlodipin e 2.5 mg tablet 07/09 completed Medicati on ID: [id number] D uration Value: 90 Brand Name: amlodipi ne Send Method: E-Prescr ibed Sub s Allowed: subs SHELIA Mcdanieli al Instruct ion: TK 1 T PO QD Medic ationGen ericName : amlodipi ne Not Available Not Available Not Available levothyro xine 100 mcg tablet TAKE 1 TABLET BY MOUTH DAILY IN THE MORNING ON AN EMPTY STOMACH active Not Available Not Available No t Available amoxicill in 875 mg tablet TAKE 1 TABLET BY MOUTH TWICE DAILY FOR 10 DAYS 11/02 completed Not Available Not Available Not Available tamsulosi n 0.4 mg capsule TAKE 1 CAPSULE BY MOUTH EVERY NIGHT AT BEDTIME active Not Available Not Available No t Available amlodipin e 10 mg tablet TAKE 1 TABLET BY MOUTH DAILY active Not Available Not Available No t Available metronida zole 0.75 % topical cream APPLY THIN LAYER TOPICALL Y TO FACE 1 TO 2 TIMES DAILY NEEDED active Not Available Not Available No t Available nitroglyc nisreen 0.4 mg sublingua l tablet PLACE 1 TABLET SUBLINGU ALLY EVERY 5 MINUTES NEEDED FOR CHEST PAIN. CALL 911 active Not Available Not Available No t Available methylpre dnisolone 4 mg tablets in a dose pack 07/09 completed Medicati on ID: [id number] D uration Value: 6 Brand Name: methylpr ednisolo ne Send Method: E-Prescr ibed Sub s Allowed: subs OK Medic ationGen ericName : methylpr ednisolo ne Not Available Not Available Not Available fluticaso ne propionat e 50 mcg/actua tion nasal spray,luci pension 07/09 completed Medicati on ID: [id number] Du ration Value: 30 Brand Name: fluticas one Send Method: E-Prescr ibed Sub s Allowed: subs OK Speci al Instruct ion: SPRAY TWICE IN EACH NOSTRIL QD Medic ationGen ericName : fluticas one Not Available Not Available Not Available levothyro xine 112 mcg tablet 07/09 completed Medicati on ID: [id number] Du ration Value: 90 Brand Name: levothyr oxine Se nd Method: E-Prescr ibed Sub s Allowed: subs OK Speci al Instruct ion: TK 1 T PO ONCE D Medica tionGene ricName: levothyr oxine Not Available Not Available Not Available amoxicill in 875 mg-potass ium clavulana te 125 mg tablet TAKE 1 TABLET BY MOUTH EVERY 12 HOURS FOR 7 DAYS 07/09 completed Not Available Not Available Not Available venlafaxi ne ER 150 mg tablet,ex tended release 24 hr TAKE 1 TABLET BY MOUTH DAILY WITH FOOD 07/09 completed Not Available Not Available Not Available EpiPen 2-Aaron 0.3 mg/0.3 mL injection , auto-inje ctor Inject 1 pen injector intramus cularly single dose as needed 07/09 completed Medicati on ID: [id number] D uration Value: 1 Prescri bed By Name: Anthony Garcia M.D. Bra nd Name: EpiPen 2-Araon Se nd Method: E-Prescr ibed Sub s Allowed: subs OK Medic ationGen ericName : EpiPen 2-Aaron Not Available Not Available Not Available Eliquis 2.5 mg tablet TAKE 1 TABLET BY MOUTH TWICE DAILY active Not Available Not Available No t Available doxycycli ne hyclate 200 mg tablet,de layed release 1 tablet by mouth 07/09 completed Medicati on ID: [id number] D uration Value: 21 Prescri bed By Name: Anthony Garcia M.D. Bra nd Name: doxycycl ine hyclate Send Method: E-Prescr ibed Sub s Allowed: subs OK Medic ationGen ericName : doxycycl ine hyclate Not Available Not Available Not Available Xhance 93 mcg/actua tion breath activated aerosol [place] 1 spray twice a day by intranas al route. 2024 active Not Available Not Available Not Avai lable Vitals None Recorded Social History None recorded. Functional Status None recorded. Mental Status None recorded. Family History Nothing Reported. Medical History Condition Response Heart Problems Y Anxiety Y Sleep Disorder Y Heart Attack ([place]) Y Migraines Y Thyroid Problems Y Hypertension Y Depression Y Kidney Disease Y Past Encounters Encounter ID Performer Location Encounter Start Date Encounter Closed Date Diagnosis/Indication Diagnosis SNOMED-CT Code Diagnosis ICD10 Code Diagnosis IMO Codes Diagnosis Note [id number] RITO CASTILLO MD [facility] [address] [address] 11/05/2024 14:50:45 11/05/2024 16:33:41 Deviated nasal septum 515340497 J34.2 86017 Sensorineu ral hearing loss of bilateral ears 735682746 H90.3 85156771 Audiologic al evaluation results: Right ear: Normal sloping to moderately severe sensorineu ral hearing loss with very good word recognitio n. Left ear: Normal sloping to moderately severe with excellent word recognitio n. Tympanomet ry: Right Ear:Type A Left Ear:Type A Chronic sinusitis 671526 00 J32.8 Polyp of n jovi cavity and/or nasal sinus 077372815 J33.9 14856 Health Concerns Section Related Observation LastModified by Organization Detai ls LastModified Time None Recorded Concern Status LastModified by Organization Details LastModified Time None Recorded Payers Encounter Date Sequence Insurance Name Policy Number Policy Beltrán Covered Member ID Beltrán Member ID Guarantor Name 11/05/2024 1 [facility] [id number] Joe Grant [id number] Joe Grant Notes Date Note Type Note Provider Name and Address Organization Details Recorded Time 11/05/2024 text/html Joe Grant is a 74-year-old male who presents for evaluation of recurrent sinus infections and nasal polyps. The patient reports experiencing a severe sinus infection approximately one month ago, which caused facial pain and discomfort. He also noted issues with his eyes, although an evaluation indicated no abnormalities. The patient visited a clinic and was prescribed antibiotics, which resolved the infection temporarily. However, he states that similar infections tend to recur approximately every month. He has not yet started using the prescribed nasal spray, Xhance, intended to shrink the nasal polyps and reduce inflammation, as he did not pick it up from the pharmacy. The patient is currently on Eliquis for blood clots. He also has a deviated septum contributing to sinus blockage. Additionally, the patient has noted some hearing loss, which was confirmed during a prior hearing test. His pharmacy on [facility] has closed, leading to confusion about medication delivery. RITO WONG MD [address] [place] [address], [phone], [facility] - [facility] 11/05/2024 15:46:19
--- OUTSIDE RECORDS SUMMARY | 2024-12-23 13:36 | XMS_ITS | Clinical Summary ---
Author Organization [facility] Address [address] [place] [address] Phone Care Team Providers Care Pulmonologist/Intensivist Name Role Phone EliecerTaras mauro Primary Care Provider [phone] Allergies No known active allergies Medications Aspirin [...] Colorectal Cancer Screening: Sigmoidoscopy 2001 Influenza Vaccine (#1) 2024 Hepatitis B Vaccine Aged Out No longe r eligible based on patient's age to complete this topic Insurance Care Teams Pulmonologist/Intensivist Relationship Specialty Start Date End Date Taras Motta DO [address] [place] [address] PCP - General Internal Medicine 09/22/20
--- OUTSIDE RECORDS SUMMARY | 2024-12-23 13:36 | XMS_ITS | Encounter Summary ---
Author Organization [facility] Address [address] [facility] [address] [place] [address] Phone Care Team Providers Care Procurement Cost Coordinator Name Role Phone Taras Motta DO Primary Care Provider [phone] Reason for Visit * Reason Comments Med Refill Encounter Details Date Type Department Care Team (Late st Contact Info) Description 12/19/2023 Refill [facility] 200 [place] [phone] Darin Massey MD [address] [facility] [address] [place] [phone] Social History Tobacco Use Types Packs/Day Years [...] on filedocumented in this encounter Care Teams Procurement Cost Coordinator Relationship Specialty Start Date End Date Taras Motta DO [address] [place] [address] PCP - General Internal Medicine 09/22/20 documented as of this encounter
--- OUTSIDE RECORDS SUMMARY | 2024-12-23 13:36 | XMS_ITS | Data Portability ---
Author Organization [place] - [facility], Allergy Address [address] [facility] 100 [place] [address] Care Team Providers Care Electrical And Radio Mechanic Name Role Phone MARLON DE GUZMAN Primary [...] mcg/actua tion breath activated aerosol 2024 025 [facility] (New Address), [address] [place] [address] [address], [place], [id number], 11/05/2024 15:33:15 Xhance 93 mcg/actua tion breath activated aerosol 2024 025 [facility] (New Address), [address] [place] [address], [address], [place], [id number], 07/09/2024 14:14:15 Patient TargetsNo targets recorded. 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 He has had difficulty tolerating saline, saline irrigations and numerous nasal steroids. CT scan in February showed mucosal thickening of the sinuses. Today I was able to see a significant septal deviation to the left side with small middle meatal polyps. Given his difficulty tolerating the above medications I have recommended enhanced delivery fluticasone 1 puff each nostril twice daily. We will also arrange for a hearing test given his difficulty with bilateral tinnitus and hearing loss [email or web address] Not available 07/09/2024 14:12:26 11/05/2024 [id number] - logistics support the prescribed nasal spray, Xhance, from the specialty pharmacy. - Use the nasal spray as directed to reduce nasal polyps and inflammation. - Follow up in a few months to assess progress. - Notify the provider if there are issues obtaining the medication. [email or web address] Not available 11/05/2024 15:33:30 Please note: Parts of this encounter note have been generated by AI based on audio conversation. Patient consent was required prior to utilizing this technology. Content review was required prior to finalizing the note. [email or web address] Not available 11/05/2024 15:33:30 Reason for Referral None Reported. Results Created Date Observation Date Name Description Value Unit Range Abnormal Flag Note LastModifiedBy Organization Detail LastModifiedTime 07/14/19 25 06/04/2022 CT, head + brain , w/o contr ast No observ ation record ed. [email or web address] Not Available 04/2024 15:24:07 07/14/19 25 02/19/2024 CT, sinus es, w/o contr ast No observ ation record ed. [email or web address] Not Available 04/2024 15:26:40 07/31/19 25 audio gram No observ ation record ed. BARCODE Not Available 2024 16:17:50 Result Notes None recorded. Problems Name Problem SNOMED Code Status Onset Date Resolution Date Notes Provider Name and Address Organization Details Recorded Time Chronic rhinitis 85103922 Active 2014 Rhinitis, chronic; Note: Date Diagnosed : 03/07/2014 3:30 PM (472.0) Not Available [facility] 4 03:02:30 Acute maxillary sinusitis 26913206 Active 2015 Acute maxillary sinusitis , unspecifi ed; Note: Date Diagnosed : 05/24/2015 3:00 PM (J01.00) Not Available [facility] 4 03:02:33 Posterior rhinorrhe a 98784166 Active 2017 Postnasal drip; Note: Date Diagnosed : 10/08/2017 2:21 PM (R09.82) Not Available [facility] 4 03:02:32 Acute frontal sinusitis 14086397 Active 2018 Acute frontal sinusitis , unspecifi ed; Note: Date Diagnosed : 05/12/2018 5:03 PM (J01.10) Not Available [facility] 4 03:02:32 Seasonal allergic rhinitis 281278403 Active 2018 Other seasonal allergic rhinitis; Note: Date Diagnosed : 05/26/2018 4:19 PM (J30.2) Not Available [facility] 4 03:02:31 Deviated nasal septum 798104916 Active 2024 RITO CASTILLO MD [address] [facility],[place] [address], [place], [address] , [place] - [facility] 5 14:10:40 Allergic rhinitis 22668812 Active 2024 RITO CASTILLO MD [address] [facility],[place] [address], [place], [address] , [place] [facility] [place] 14:10:52 Bilateral tinnitus 81094659610 02 Active 2024 RIT[facility]STILLO MD [facility] [place] [address], [place], [address] , [place] [facility] [place] 14:11:04 Polyp of nasal cavity and/or nasal sinus 007243961 Active 2024 RITO CASTILLO MD [address] [facility],[place] [address], [place], [place], [address] , [place] [facility] [place] 14:11:11 Chronic sinusitis 25251668 Active 2024 RITO CASTILLO MD [address] [facility],[place] [address], [place], [address] , [place] [facility] [place] 15:29:56 Sensorine ural hearing loss of bilateral ears 960260266 Active 2024 RICHARD JONES [address] [facility],[place] [address], [facility] [place], [address] , [place] [facility] 15:30:39 Notes:Some problems listed i n Document: #[id number] could not be added to this patient's chart. Please review this document and add these problems to the patient's chart manually as needed. Problem Notes None recorded. Procedures Surgical History Date Name Laterality Status Provider Name and Address Organization Details Recorded Time JMSNasal/Sinus Endoscopy completed RITO WONG MD [address] [facility],[place] [address], [place], [address], [place] - [facility] [place] 11/05/2024 15:29:47 Comp Audio with Tymps - 80687 & 42203 completed RICHARD JONES [address] [facility] [place] [address], [place], [address], [place] - [facility] [place] 07/30/2024 15:30:34 JMSNasal/Sinus Endoscopy completed RITO WONG MD [address] [place] [address], [phone], [facility] - [facility] 07/09/2024 14:10:34 Imaging Results None recorded. Procedure Notes None recorded. Medical Equipment None Reported. Allergies No known drug allergies Medications Name Sig Start Date Stop Date Status Note LastModified by Organization Details LastModified Time losartan 50 mg tablet 07/09 completed Medicati on ID: [id number] Du ration Value: 30 Brand Name: losartan [...] suspensio n 05/16 completed Medicati on ID: [id number] Du ration Value: 30 Reason: () Brand Name: nystatin Send Method: E-Prescr ibed Sub s Allowed: subs OK Speci al Instruct ion: SWISH AND SPIT 1 TEA 5ML PO QID Medi cationGe nericNam e: nystatin Not Available Not Available Not Available atorvasta tin 20 mg tablet 07/09 completed Medicati on ID: [id number] D uration Value: 90 Brand Name: atorvast atin Sen d Method: E-Prescr ibed Sub s Allowed: subs OK Speci al Instruct ion: TK 1 T PO QHS Medi cationGe nericNam e: atorvast atin Not Available Not Available Not Available venlafaxi ne 75 mg tablet 07/09 completed Medicati on ID: 71819 Du ration Value: 30 Brand Name: venlafax [...] mg tablet 07/09 completed Medicati on ID: [id number] D uration Value: 90 Brand Name: amlodipi [...] dose pack 07/09 completed Medicati on ID: [id number] D uration Value: 6 Brand Name: methylpr ednisolo ne Send Method: E-Prescr ibed Sub s Allowed: subs OK Medic ationGen ericName : methylpr ednisolo ne Not Available Not Available Not Available fluticaso ne propionat e 50 mcg/actua tion nasal spray,luci pension 07/09 completed Medicati on ID: 18177 Du ration Value: 30 Brand Name: fluticas one Send Method: E-Prescr ibed Sub s Allowed: subs OK Speci al Instruct ion: SPRAY TWICE IN EACH NOSTRIL QD Medic ationGen ericName : fluticas one Not Available Not Available Not Available levothyro xine 112 mcg tablet 07/09 completed Medicati on ID: 29072 Du ration Value: 90 Brand Name: levothyr [...] as needed 07/09 completed Medicati on ID: [id number] D uration Value: 1 Prescri bed By Name: Nasrin Higgins nd Name: EpiPen 2-Aaron Se nd Method: E-Prescr ibed Sub s Allowed: subs OK Medic ationGen ericName : EpiPen 2-Aaron Not Available Not Available Not Available Eliquis 2.5 mg tablet TAKE 1 TABLET BY MOUTH TWICE DAILY active Not Available Not Available No t Available doxycycli ne hyclate 200 mg tablet,de layed release 1 tablet by mouth 07/09 completed Medicati on ID: [id number] D uration Value: 21 Prescri bed By Name: Nasrin Higgins nd Name: doxycycl ine hyclate Send Method: E-Prescr ibed Sub s Allowed: subs OK Medic ationGen ericName : doxycycl ine hyclate Not Available Not Available Not Available Xhance 93 mcg/actua tion breath activated aerosol [place] 1 spray twice a day by intranas al route. 2024 active Not Available Not Available Not Avai lable Vitals None Recorded Social History None recorded. Functional Status None recorded. Mental Status None recorded. Family History Nothing Reported. Medical History Condition Response Heart Problems Y Anxiety Y Sleep Disorder Y Heart Attack ([place]) Y Migraines Y Thyroid Problems Y Hypertension Y Depression Y Kidney Disease Y Past Encounters Encounter ID Performer Location Encounter Start Date Encounter Closed Date Diagnosis/Indication Diagnosis SNOMED-CT Code Diagnosis ICD10 Code Diagnosis IMO Codes Diagnosis Note [id number] RITO CASTILLO MD [facility] [address] [address] 07/09/2024 13:18:43 07/09/2024 14:14:13 Deviated nasal septum 113905622 J34.2 01352 Allergic rhinitis 743931 04 J30.9 3871714 Bilateral tinnitus 34101 51409 102 H93.13 621589 Polyp of n jovi cavity and/or nasal sinus 137799140 J33.9 25628 Chronic sinusitis 960422 00 J32.8 [id number] RITO CASTILLO MD [facility] [address] [address] 07/30/2024 14:37:48 07/30/2024 15:35:07 Sensorineural hearing loss of bilateral ears 743905429 H90.3 [id number] Audiologic al evaluation results: Right ear: Normal sloping to moderately severe sensorineu ral hearing loss with very good word recognitio n. Left ear: Normal sloping to moderately severe with excellent word recognitio n. Tympanomet ry: Right Ear:Type A Left Ear:Type A [id number] RITO CASTILLO MD [facility] [address] [address] 11/05/2024 14:50:45 11/05/2024 16:33:41 Deviated nasal septum 164034869 J34.2 25780 Sensorineu ral hearing loss of bilateral ears 017416173 H90.3 [id number] Audiologic al evaluation results: Right ear: Normal sloping to moderately severe sensorineu ral hearing loss with very good word recognitio n. Left ear: Normal sloping to moderately severe with excellent word recognitio n. Tympanomet ry: Right Ear:Type A Left Ear:Type A Chronic sinusitis 497568 00 J32.8 Polyp of n jovi cavity and/or nasal sinus 682143570 J33.9 32942 Health Concerns Section Related Observation LastModified by Organization Detai ls LastModified Time None Recorded Concern Status LastModified by Organization Details LastModified Time None Recorded Advance Directives Directive None Recorded Payers Insurance Date Sequence Insurance Name Policy Number Policy Beltrán Covered Member ID Beltrán Member ID Guarantor Name 11/02/2024 1 [facility] [id number] 04 Joe Grant [id number] Joe Grant Notes Date Note Type Note Provider Name and Address Organization Details Recorded Time 07/09/2024 text/html Sinus congestion, facial pressure and dry throat. Sx persist despite using nasal steroids and a brief trial of Navage. [place] too much pressure and dizziness. [facility] thickening. He was previously noted to have significant allergy. He does have a history of heart disease and is on metoprolol which would make injection immunotherapy contraindicated. He has had tried multiple nasal steroids saline and saline irrigations without improvement. He has also tried some antihistamines but those made him too dry. RITO WONG MD [address] [place] [address], [phone], [facility] - [facility] 07/09/2024 14:13:26 11/05/2024 text/html Joe Grant is a 74-year-old [...] a prior hearing test. His pharmacy on [facility] has closed, leading to confusion about medication delivery. RITO WONG MD [address] [place] [address], [phone], [facility] - [facility] 11/05/2024 15:46:19
== END 2024-12-23 11:25 | disposition home or self-care (01) ==
LOC: HO.RHES 10:54
PROVIDERS: PCP Internal Medicine; Visit Provider Internal Medicine Rheumatology
DX: M10.9 Gout, unspecified (principal); M35.3 Polymyalgia rheumatica
CPT/HCPCS: 99213; G2211

== ENCOUNTER → 2024-12-23 10:54 | Outpatient (BNVA) | payer MEDICARE, SELFPAY | PROVIDERS: PCP Internal Medicine; Visit Provider Internal Medicine Rheumatology | DX: M10.9 Gout, unspecified (principal); M35.3 Polymyalgia rheumatica | CPT/HCPCS: 99212 ==

== ENCOUNTER 2024-12-29 09:50 | Outpatient (REF) | payer MEDICARE, SELFPAY ==
[2024-12-29 14:59] LABS: Alanine Aminotransferase 87 U/L (0-40); Aspartate Amino Transferase 43 U/L (5-37); Estimated Glomerular Filt Rate 49; Uric Acid 7.9 mg/dL (3.4-7.0)
--- OUTSIDE RECORDS SUMMARY | 2024-12-29 18:20 | XMS_ITS | Data Portability ---
Author Organization [place] - [facility], Allergy Address [address] [facility] 100 [place] [address] Care Team Providers Care Manager Contact Name Role Phone MARLON DE GUZMAN Primary Care Provider [phone] Assessment Encounter Date Assessment Date Assessment LastModified [...] mcg/actua tion breath activated aerosol 2024 025 [facility] (New Address), [address] [place] [address] [address], [place], [id number], 11/05/2024 15:33:15 Xhance 93 mcg/actua tion breath activated aerosol 2024 025 [facility] (New Address), [address] [place] [address], [address], [place], [id number], 07/09/2024 14:14:15 Patient TargetsNo targets recorded. 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 [email or web address] Not available 07/09/2024 14:12:26 11/05/2024 [id number] - wind up operator the prescribed nasal spray, Xhance, from the [...] Address Organization Details Recorded Time Chronic rhinitis 17941356 Active 2014 Rhinitis, chronic; Note: Date Diagnosed : 03/07/2014 3:30 PM (472.0) Not Available [facility] 4 03:02:30 Acute maxillary sinusitis 55418185 Active 2015 Acute maxillary sinusitis , unspecifi ed; Note: Date Diagnosed : 05/24/2015 3:00 PM (J01.00) Not Available [facility] 4 03:02:33 Posterior rhinorrhe a 91399998 Active 2017 Postnasal drip; Note: Date Diagnosed : 10/08/2017 2:21 PM (R09.82) Not Available [facility] 4 03:02:32 Acute frontal sinusitis 15146604 Active 2018 Acute frontal sinusitis , unspecifi ed; Note: Date Diagnosed : 05/12/2018 5:03 PM (J01.10) Not Available [facility] 4 03:02:32 Seasonal allergic rhinitis 863866897 Active 2018 Other seasonal allergic rhinitis; Note: Date Diagnosed : 05/26/2018 4:19 PM (J30.2) Not Available [facility] 4 03:02:31 Deviated nasal septum 814395146 Active 2024 RITO CASTILLO MD [address] [facility],[place] [address], [place], [address] , [place] - [facility] 5 14:10:40 Allergic rhinitis 29198015 Active 2024 RITO CASTILLO MD [address] [facility],[place] [address], [place], [address] , [place] - [facility] [place] 14:10:52 Bilateral tinnitus 91832432137 02 Active 2024 RITO CASTILLO MD [facility] [place] [address], [place], [address] , [place] [facility] [place] 14:11:04 Polyp of nasal cavity and/or nasal sinus 676468554 Active 2024 RITO CASTILLO MD [address] [facility],[place] [address], [place], [place], [address] , [place] - [facility] [place] 14:11:11 Chronic sinusitis 74988178 Active 2024 RITO CASTILLO MD [address] [facility],[place] [address], [place], [address] , [place] [facility] [place] 15:29:56 Sensorine ural hearing loss of bilateral ears 719586296 Active [address] [facility],[place] [address], [facility] [place], [address] , [place] [facility] 15:30:39 Notes:Some problems listed i n Document: #[id number] could not be added to this patient's chart. Please review this document and add these problems to the patient's chart manually as needed. Problem Notes None recorded. Procedures Surgical History Date Name Laterality Status Provider Name and Address Organization Details Recorded Time JMSNasal/Sinus Endoscopy completed RITO WONG MD [address] [facility],[place] [address], [place], [address], [place] - [facility] [place] 11/05/2024 15:29:47 Comp Audio with Tymps - 71687 & 97629 completed RICHARD JONES [facility] [place] [address], [place], [address], [place] - [facility] [place] 07/30/2024 15:30:34 JMSNasal/Sinus Endoscopy completed RITO WONG MD [address] [place] [address], [address], [facility] - [facility] 07/09/2024 14:10:34 Imaging Results None recorded. Procedure Notes None recorded. Medical Equipment None Reported. Allergies No known drug allergies Medications Name Sig Start Date Stop Date Status Note LastModified by Organization Details LastModified Time losartan 50 mg tablet 07/09 completed Medicati on ID: [id number] Du ration Value: 30 Brand Name: losartan [...] suspensio n 05/16 completed Medicati on ID: [id number] Du ration Value: 30 Reason: () Brand Name: nystatin Send Method: E-Prescr ibed Sub s Allowed: subs OK Speci al Instruct ion: SWISH AND SPIT 1 TEA 5ML PO QID Medi cationGe nericNam e: nystatin Not Available Not Available Not Available atorvasta tin 20 mg tablet 07/09 completed Medicati on ID: [id number] D uration Value: 90 Brand Name: atorvast atin Sen d Method: E-Prescr ibed Sub s Allowed: subs OK Speci al Instruct ion: TK 1 T PO QHS Medi cationGe nericNam e: atorvast atin Not Available Not Available Not Available venlafaxi ne 75 mg tablet 07/09 completed Medicati on ID: 17902 Du ration Value: 30 Brand Name: venlafax [...] mg tablet 07/09 completed Medicati on ID: [id number] D uration Value: 90 Brand Name: amlodipi [...] dose pack 07/09 completed Medicati on ID: [id number] D uration Value: 6 Brand Name: methylpr ednisolo ne Send Method: E-Prescr ibed Sub s Allowed: subs OK Medic ationGen ericName : methylpr ednisolo ne Not Available Not Available Not Available fluticaso ne propionat e 50 mcg/actua tion nasal spray,luci pension 07/09 completed Medicati on ID: [id number] Du ration Value: 30 Brand Name: fluticas one Send Method: E-Prescr ibed Sub s Allowed: subs OK Speci al Instruct ion: SPRAY TWICE IN EACH NOSTRIL QD Medic ationGen ericName : fluticas one Not Available Not Available Not Available levothyro xine 112 mcg tablet 07/09 completed Medicati on ID: [id number] Du ration Value: 90 Brand Name: levothyr [...] as needed 07/09 completed Medicati on ID: [id number] D uration Value: 1 Prescri bed By [...] by mouth 07/09 completed Medicati on ID: [id number] D uration Value: 21 Prescri bed By Name: Nasrin Higgins nd Name: doxycycl ine hyclate Send Method: E-Prescr ibed Sub s Allowed: subs OK Medic ationGen ericName : doxycycl ine hyclate Not Available Not Available Not Available Xhance 93 mcg/actua tion breath activated aerosol [place] 1 spray twice a day by intranas al route. 2024 active Not Available Not Available Not Avai lable Vitals None Recorded Social History None recorded. Functional Status None recorded. Mental Status None recorded. Family History Nothing Reported. Medical History Condition Response Heart Problems Y Anxiety Y Migraines Y Thyroid Problems Y Depression Y Heart Attack ([place]) Y Sleep Disorder Y Hypertension Y Kidney Disease Y Past Encounters Encounter ID Performer Location Encounter Start Date Encounter Closed Date Diagnosis/Indication Diagnosis SNOMED-CT Code Diagnosis ICD10 Code Diagnosis IMO Codes Diagnosis Note [id number] RITO CASTILLO MD [facility] [address] [address] 07/09/2024 13:18:43 07/09/2024 14:14:13 Deviated nasal septum 539475771 J34.2 60743 Allergic rhinitis 768176 04 J30.9 5557527 Bilateral tinnitus 74133 24096 102 H93.13 475382 Polyp of n jovi cavity and/or nasal sinus 401064190 J33.9 33805 Chronic sinusitis 913337 00 J32.8 [id number] RITO CASTILLO MD [facility] [address] [address] 07/30/2024 14:37:48 07/30/2024 15:35:07 Sensorineural hearing loss of bilateral ears 783397460 H90.3 95356426 Audiologic al evaluation results: Right ear: Normal sloping to moderately severe sensorineu ral hearing loss with very good word recognitio n. Left ear: Normal sloping to moderately severe with excellent word recognitio n. Tympanomet ry: Right Ear:Type A Left Ear:Type A [id number] RITO CASTILLO MD [facility] [address] [address] 11/05/2024 14:50:45 11/05/2024 16:33:41 Deviated nasal septum 966837727 J34.2 10781 Sensorineu ral hearing loss of bilateral ears 438774503 H90.3 96977937 Audiologic al evaluation results: Right ear: Normal sloping to moderately severe sensorineu ral hearing loss with very good word recognitio n. Left ear: Normal sloping to moderately severe with excellent word recognitio n. Tympanomet ry: Right Ear:Type A Left Ear:Type A Chronic sinusitis 612287 00 J32.8 Polyp of n jovi cavity and/or nasal sinus 982395062 J33.9 26275 Health Concerns Section Related Observation LastModified by Organization Detai ls LastModified Time None Recorded Concern Status LastModified by Organization Details LastModified Time None Recorded Advance Directives Directive None Recorded Payers Insurance Date Sequence Insurance Name Policy Number Policy Beltrán Covered Member ID Beltrán Member ID Guarantor Name 11/02/2024 1 [facility] [id number] 04 Joe Grant [id number] Joe Grant Notes Date Note Type Note Provider Name and Address Organization Details Recorded Time 07/09/2024 text/html Sinus congestion, facial pressure and dry throat. Sx persist despite using nasal steroids and a brief trial of Navage. [place] too much pressure and dizziness. [facility] thickening. He was previously noted to have significant allergy. He does have a history of heart disease and is on metoprolol which would make injection immunotherapy contraindicated. He has had tried multiple nasal steroids saline and saline irrigations without improvement. He has also tried some antihistamines but those made him too dry. RITO WONG MD [address] [place] [address], [phone], [facility] - [facility] 07/09/2024 14:13:26 11/05/2024 text/html Joe Grant is [...] confusion about medication delivery. RITO WONG MD [address] [place] [address], [phone], [facility] - [facility] 11/05/2024 15:46:19
--- OUTSIDE RECORDS SUMMARY | 2024-12-29 18:20 | XMS_ITS | Continuity of Care Document ---
Author Organization [place] [facility], [facility] Address [address] [place] [address] Care Team Providers Care Technical Customer Support Specialist Name Role Phone MARLON DE GUZMAN Primary Care Provider [phone] Assessment Encounter Date Assessment Date Assessment LastModified [...] mcg/actua tion breath activated aerosol 2024 025 [employer] (New Address), [address] [place] [address], [address], [place], [place], [id number], 11/05/2024 15:33:15 Patient TargetsNo targets recorded. 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, Xhance, from [...] Address Organization Details Recorded Time Chronic rhinitis 55335834 Active 2014 Rhinitis, chronic; Note: Date Diagnosed : 03/07/2014 3:30 PM (472.0) Not Available [facility] 4 03:02:30 Acute maxillary sinusitis 10320461 Active 2015 Acute maxillary sinusitis , unspecifi ed; Note: Date Diagnosed : 05/24/2015 3:00 PM (J01.00) Not Available [facility] 4 03:02:33 Posterior rhinorrhe a 86293863 Active 2017 Postnasal drip; Note: Date Diagnosed : 10/08/2017 2:21 PM (R09.82) Not Available [facility] 4 03:02:32 Acute frontal sinusitis 47478050 Active 2018 Acute frontal sinusitis , unspecifi ed; Note: Date Diagnosed : 05/12/2018 5:03 PM (J01.10) Not Available [facility] 4 03:02:32 Seasonal allergic rhinitis 781750111 Active 2018 Other seasonal allergic rhinitis; Note: Date Diagnosed : 05/26/2018 4:19 PM (J30.2) Not Available [facility] 4 03:02:31 Deviated nasal septum 224189752 Active 2024 RITO CASTILLO MD [address] [facility] [address], [place], [address] , [facility] 5 14:10:40 Allergic rhinitis 63566158 Active 2024 RITO CASTILLO MD [address] [facility], [place], [address] , [facility] 5 14:10:52 Bilateral tinnitus 82393772525 02 Active 2024 RITO CASTILLO MD [address] [facility] [address], [place], [address] , 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 - [facility] 5 14:11:11 Chronic sinusitis 76544761 Active 2024 RITO CASTILLO MD [address] [facility] [address], [place], [address] , [facility] - [facility] 15:29:56 Sensorine ural hearing loss of bilateral ears 935721332 Active 2024 RICHARD JONES [address] [facility], [place], [address] , [facility] - [facility] 5 15:30:39 Notes:Some problems listed i n Document: #[id number] could not be added to this patient's chart. Please review this document and add these problems to the patient's chart manually as needed. Problem Notes None recorded. Procedures Surgical History Date Name Laterality Status Provider Name and Address Organization Details Recorded Time JMSNasal/Sinus Endoscopy completed RITO WONG MD [address] [facility] [address], [place], [address], [place] [facility] 11/05/2024 15:29:47 5 Comp Audio with Tymps - 10051 & 07299 completed RICHARD JONES [address] [facility] [address], [place], [address], [place] [facility] 07/30/2024 15:30:34 5 JMSNasal/Sinus Endoscopy completed RITO WONG MD 100 [facility] [address], [place], [address], [place] [facility] 07/09/2024 14:10:34 Imaging Results None recorded. Procedure Notes None recorded. Medical Equipment None Reported. Allergies No known drug allergies Medications Name Sig Start Date Stop Date Status Note LastModified by Organization Details LastModified Time losartan 50 mg tablet 07/09 completed Medicati on ID: [id number] Du ration Value: 30 Brand Name: losartan [...] suspensio n 05/16 completed Medicati on ID: [id number] Du ration Value: 30 Reason: () Brand Name: nystatin Send Method: E-Prescr ibed Sub s Allowed: subs OK Speci al Instruct ion: SWISH AND SPIT 1 TEA 5ML PO QID Medi cationGe nericNam e: nystatin Not Available Not Available Not Available atorvasta tin 20 mg tablet 07/09 completed Medicati on ID: [id number] D uration Value: 90 Brand Name: atorvast atin Sen d Method: E-Prescr ibed Sub s Allowed: subs OK Speci al Instruct ion: TK 1 T PO QHS Medi cationGe nericNam e: atorvast atin Not Available Not Available Not Available venlafaxi ne 75 mg tablet 07/09 completed Medicati on ID: [id number] Du ration Value: 30 Brand Name: venlafax [...] mg tablet 07/09 completed Medicati on ID: [id number] D uration Value: 90 Brand Name: amlodipi [...] dose pack 07/09 completed Medicati on ID: [id number] D uration Value: 6 Brand Name: methylpr ednisolo ne Send Method: E-Prescr ibed Sub s Allowed: subs OK Medic ationGen ericName : methylpr ednisolo ne Not Available Not Available Not Available fluticaso ne propionat e 50 mcg/actua tion nasal spray,luci pension 07/09 completed Medicati on ID: [id number] Du ration Value: 30 Brand Name: fluticas one Send Method: E-Prescr ibed Sub s Allowed: subs OK Speci al Instruct ion: SPRAY TWICE IN EACH NOSTRIL QD Medic ationGen ericName : fluticas one Not Available Not Available Not Available levothyro xine 112 mcg tablet 07/09 completed Medicati on ID: [id number] Du ration Value: 90 Brand Name: levothyr [...] as needed 07/09 completed Medicati on ID: [id number] D uration Value: 1 Prescri bed By Name: Anthony Garcia M.D. Bra nd Name: EpiPen 2-Aaron Se nd Method: E-Prescr ibed Sub s Allowed: subs OK Medic ationGen ericName : EpiPen 2-Aaron Not Available Not Available Not Available Eliquis 2.5 mg tablet TAKE 1 TABLET BY MOUTH TWICE DAILY active Not Available Not Available No t Available doxycycli ne hyclate 200 mg tablet,de layed release 1 tablet by mouth 07/09 completed Medicati on ID: [id number] D uration Value: 21 Prescri bed By Name: Anthony Garcia M.D. Bra nd Name: doxycycl ine hyclate Send Method: E-Prescr ibed Sub s Allowed: subs OK Medic ationGen ericName : doxycycl ine hyclate Not Available Not Available Not Available Xhance 93 mcg/actua tion breath activated aerosol [place] 1 spray twice a day by intranas al route. 2024 active Not Available Not Available Not Avai lable Vitals None Recorded Social History None recorded. Functional Status None recorded. Mental Status None recorded. Family History Nothing Reported. Medical History Condition Response Depression Y Kidney Disease Y Heart Problems Y Anxiety Y Migraines Y Sleep Disorder Y Thyroid Problems Y Heart Attack ([place]) Y Hypertension Y Past Encounters Encounter ID Performer Location Encounter Start Date Encounter Closed Date Diagnosis/Indication Diagnosis SNOMED-CT Code Diagnosis ICD10 Code Diagnosis IMO Codes Diagnosis Note [id number] RITO CASTILLO MD [facility] [address] [address] 11/05/2024 14:50:45 11/05/2024 16:33:41 Deviated nasal septum 952674778 J34.2 08568 Sensorineu ral hearing loss of bilateral ears 555939772 H90.3 [id number] Audiologic al evaluation results: Right ear: Normal sloping to moderately severe sensorineu ral hearing loss with very good word recognitio n. Left ear: Normal sloping to moderately severe with excellent word recognitio n. Tympanomet ry: Right Ear:Type A Left Ear:Type A Chronic sinusitis 089010 00 J32.8 Polyp of n jovi cavity and/or nasal sinus 292534238 J33.9 59813 Health Concerns Section Related Observation LastModified by Organization Detai ls LastModified Time None Recorded Concern Status LastModified by Organization Details LastModified Time None Recorded Payers Encounter Date Sequence Insurance Name Policy Number Policy Beltrán Covered Member ID Beltrán Member ID Guarantor Name 11/05/2024 1 [facility] [id number] 04 Joe Grant [id number] Joe Grant Notes Date Note Type Note [...] a prior hearing test. His pharmacy on [facility] has closed, leading to confusion about medication delivery. RITO WONG MD [address] [place] [address], [address], [facility] - [facility] 11/05/2024 15:46:19
== END 2024-12-29 09:51 | disposition home or self-care (01) ==
LOC: HO.HKASLDS 09:50
PROVIDERS: PCP Internal Medicine; Visit Provider Internal Medicine Rheumatology
DX: M10.9 Gout, unspecified (principal)
CPT/HCPCS: 36415; 82565; 84450; 84460; 84550